=== PATIENT | female | born 1995 | race Caucasian/White ===

== ENCOUNTER 2016-12-24 21:48 | Emergency (ER) | payer OTHER ==
[~2016-12-24] VITALS: Ht 160 cm; Wt 48.9 kg
[2016-12-24 21:55] VITALS: BP 120/85
[2016-12-24] MEDS ORDERED: KETOROLAC 30 MG/1 ML ONE (22:16)
[2016-12-24] MEDS ORDERED: KETOROLAC 30 MG/1 ML IM ONE (22:30)
== END 2016-12-24 23:14 | disposition home or self-care (01) ==
LOC: ED 23:08
DX: S09.90XA Unspecified injury of head, initial encounter (principal); X58.XXXA Exposure to other specified factors, initial encounter; Y93.89 Activity, other specified; Y99.8 Other external cause status; Y92.328 Other athletic field as the place of occurrence of the external cause
CPT/HCPCS: 70450; 96372; 99284; J1885